=== PATIENT | female | born 1995 | race Caucasian/White ===

== ENCOUNTER 2017-10-20 12:06 | Outpatient (CLI) | payer MEDICAID ==
[2017-10-20 12:24] VITALS: BP 98/54
== END 2017-10-20 12:48 | disposition home or self-care (01) ==
LOC: TRG 12:06
PROVIDERS: ATTEND Obstetrics & Gynecology
DX: Z34.93 Encounter for supervision of normal pregnancy, unspecified, third trimester (principal); Z3A.36 36 weeks gestation of pregnancy
CPT/HCPCS: 59025

== ENCOUNTER 2017-11-18 09:50 | Inpatient (IN) | payer MEDICAID ==
[2017-11-18] MEDS ORDERED: PEPCID IV SCH ×2 (10:17→14:23)
[2017-11-18] MEDS ORDERED: REGLAN IV SCH (10:17)
[2017-11-18] MEDS ORDERED: ANCEF/STERILE WATER 2 GM/20 ML 2 GM/20 ML SYRINGE IV NR (11:00)
[2017-11-18] MEDS ORDERED: PITOCin/NS 20 UNIT/1000ML DRIP 20 UNITS/1,000 ML BAG IV SCH ×3 (11:00→16:00)
[2017-11-18] MEDS ORDERED: BICITRA PO SCH (11:00)
[2017-11-18] MEDS: LACTATED RINGERS 1,000 ML IV SCH ×2 (12:17→13:12)
[2017-11-18 12:18] LABS: Basophils % (Auto) 0.2 % (0.0-1.8); Eosinophils % (Auto) 0.4 % (0.0-4.3); Hemoglobin 12.9 gm/dl (10.1-14.3); Mean Corpuscular HGB Conc 33 % (30-34); Mean Corpuscular Hemoglobin 29 pg (28-32); Mean Corpuscular Volume 88 fl (79-97); Platelet Count 224 K/mm3 (140-440); Red Blood Count 4.45 M/mm3 (3.65-5.03); Red Cell Distribution Width 13.4 % (13.2-15.2); White Blood Count 8.6 K/mm3 (4.5-11.0)
--- NOTE | 2017-11-18 13:02 | Anesthesia Day of Surgery ---
Anesthesia Day of Surgery - Day of Surgery Patient Examined: Yes Patient H&P Reviewed: Yes Patient is NPO: Yes
--- NOTE | 2017-11-18 13:02 | Anesthesia Consultation ---
Anesthesia Consult and Med Hx - Airway Anesthetic Teeth Evaluation: Good (some loose/broken in back) - Pulmonary Exam CTA: Yes - Cardiac Exam Cardiac Exam: RRR - Pre-Operative Health Status ASA Pre-Surgery Classification: ASA2 Proposed Anesthetic Plan: Spinal (primary preganancy - baby breech) - Pulmonary Hx Smoking: No Hx Asthma: No COPD: No Hx Pneumonia: No - Cardiovascular System Hx Hypertension: No - Central Nervous System Hx Seizures: No Hx Psychiatric Problems: No - Endocrine Hx Renal Disease: No Hx End Stage Renal Disease: No Hx Hypothyroidism: No Hx Hyperthyroidism: No - Hematic Hx Anemia: No Hx Sickle Cell Disease: No - Other Systems Hx Alcohol Use: No
--- NOTE | 2017-11-18 14:19 | History and Physical Report ---
History of Present Illness Date of examination: 11/18/17 Date of admission: 11/18/17 09:50 Chief complaint: seen in clinic and dx with oligo and breech History of present illness: This is a 22 yo G [id number] at 40+6 weeks admitted from clinic after US shows oligo and breech. She is scheduled for primary . Her OB care consist of early care at [facility] at 8 weeks. She had chlamydia and treated in this and treated. She has gained >30 pounds and hx of placenta previa in which resolved at 28 weeks. Past History Past Medical History: no pertinent history Past Surgical History: D&C [employer] History: chlamydia Family/Genetic History: diabetes, hypertension Social history: no significant social history, single. denies: smoking, alcohol abuse, prescription drug abuse - Obstetrical History Expected Date of Delivery: 11/12/17 Actual Gestation: 40 Week(s) 6 Day(s) : 3 Para: 0 Hx # Term Pregnancies: 0 Number of Pregnancies: 0 Spontaneous Abortions: 2 Induced : 0 Number of Living Children: 0 Medications and Allergies Allergies Allergy/AdvReac Type Severity Reaction Status Date / Time No Known Allergies Allergy Unverified 04/05/14 14:10 Home Medications Medication Instructions Recorded Confirmed Last Taken Type Vit Calc,Iron,Folic 1 each PO DAILY 11/18/17 11/18/17 Unknown History [ Vitamins] Active Meds: Active Medications Citric Acid/Sodium Citrate (Bicitra) 30 ml PO ONCE GIL Stop: 11/18/17 23:00 Last Admin: 11/18/17 13:05 Dose: 30 ml Famotidine (Pepcid) 20 mg IV ONCE GIL Stop: 11/18/17 23:00 Last Admin: 11/18/17 13:08 Dose: 20 mg Cefazolin Sodium (Ancef/Sterile Water 2 Gm/20 Ml) 2 gm in 20 mls @ 80 mls/hr IV PREOP NR PRN Reason: Protocol Stop: 11/18/17 23:00 Lactated Ringer's (Lactated Ringers) 1,000 mls @ 2,250 mls/hr IV PREOP GIL Stop: 11/19/17 11:27 Last Admin: 11/18/17 13:12 Dose: 2,250 mls/hr Oxytocin/Sodium Chloride (Pitocin/Ns 20 Unit/1000ml Drip) 20 units in 1,000 mls @ 0 mls/hr IV TITR GIL PRN Reason: As Directed Metoclopramide HCl (Reglan) 10 mg IV ONCE GIL Stop: 11/18/17 23:00 Last Admin: 11/18/17 13:06 Dose: 10 mg Review of Systems All systems: negative - Vital Signs Vital signs: Vital Signs Temp Resp 98.4 F 18 11/18/17 10:00 11/18/17 10:00 Temp Pulse Resp BP Pulse Ox 98.4 F 80 18 133/74 100 11/18/17 10:00 11/18/17 13:15 11/18/17 10:00 11/18/17 13:13 11/18/17 13:15 - Physical Exam Breasts: Positive: normal Cardiovascular: Regular rate, Normal S1 Lungs: Positive: Clear to auscultation, Normal air movement Abdomen: Positive: normal appearance, soft, normal bowel sounds. Negative: distention, tenderness Genitourinary (Female): Positive: normal external genitalia, normal perenium Vulva: both: normal Vagina: Positive: normal moisture Uterus: Positive: enlarged Anus/Rectum: Positive: normal perianal skin, heme negative Extremities: Positive: normal Deep Tendon Reflex Grade: Normal +2 - Obstetrical FHR: category 1 Results Result Diagrams: 11/18/17 12:04 Abnormal lab results 11/18/17 Range/Units 12:04 [place] % (Auto) 7.7 H (0.0-7.3) % Seg Neutrophils % 70.2 H (40.0-70.0) % All other labs normal. Ultrasound: report reviewed Assessment and Plan A/P IUP 40+6 weeks Breech Oligo discussed r//b/a of procedure whcih includ but not limited to bleeding infection damage to plevic and non pelvic organs firks of blood clots, risk of and hysterectomy proceed with Primary csec
[2017-11-18] MEDS ORDERED: NEO SYNEPHRINE/NS Syringe(OR USE) IV ONE (14:22)
[2017-11-18] MEDS ORDERED: MORPHINE ONE (14:24)
[2017-11-18] MEDS ORDERED: WATER FOR IRRIG STERILE IR ONE (14:30)
[2017-11-18] MEDS ORDERED: NACL 0.9% IR ONE (14:30)
[2017-11-18] MEDS ORDERED: BICITRA PO ONE (15:00)
[2017-11-18] MEDS ORDERED: REGLAN IV ONE (15:00)
[2017-11-18] MEDS ORDERED: LACTATED RINGERS 1,000 ML IV SCH (15:00)
[2017-11-18] MEDS ORDERED: TYLENOL PR PRN (15:53)
[2017-11-18] MEDS ORDERED: NARCAN 0.4 MG/1 ML IV PRN ×2 (15:53)
[2017-11-18] MEDS ORDERED: SENOKOT PO PRN (15:53)
[2017-11-18] MEDS ORDERED: LANSINOH TP PRN (15:53)
[2017-11-18] MEDS ORDERED: MILK OF MAGNESIA PO PRN (15:53)
[2017-11-18] MEDS ORDERED: MORPHINE IV PRN ×2 (15:53)
[2017-11-18] MEDS ORDERED: ZOFRAN IV PRN (15:53)
[2017-11-18] MEDS ORDERED: MYLICON PO PRN (15:53)
[2017-11-18] MEDS ORDERED: PHENERGAN PR PRN (15:53)
[2017-11-18] MEDS ORDERED: ANUCORT-HC PR PRN (15:53)
[2017-11-18] MEDS ORDERED: NORCO 5/325 PO PRN (15:53)
[2017-11-18] MEDS ORDERED: TUCKS PAD TP PRN (15:53)
[2017-11-18] MEDS ORDERED: TORADOL IV PRN (15:53)
[2017-11-18] MEDS ORDERED: SODIUM CHLORIDE FLUSH SYRINGE 10 ML IV NR (16:00)
[2017-11-18] MEDS ORDERED: D5LR 1,000 ML IV SCH (16:00)
--- NOTE | 2017-11-18 16:04 | Operative Report ---
Operative Report Operative Report: DATE OF OPERATION: 11/18/2017 PREOPERATIVE DIAGNOSES: 1. Intrauterine gestation at 40+6 weeks. 2. US report stating oligohydramnios 4cm and breech 3. Obesity POSTOPERATIVE DIAGNOSES: 1.Intrauterine gestation at 40+6 weeks 2.Oligohydramnios 3. vertex OPERATION PERFORMED: Primary low transverse section. SURGEON: Lidia Stephen MD ANESTHESIA: Spinal . COMPLICATIONS: None. ESTIMATED BLOOD LOSS: 1000 mL. DRAINS: Bingham catheter to the bladder. SPECIMENS TO PATHOLOGY: Cord blood for routine testing. OPERATIVE FINDINGS: A viable male infant with Apgars of 8 and 9 and birthweight of 8 pounds 9 ounces was delivered from a cephalic presentation, The amniotic fluid was clear. The uterus, fallopian tubes and ovaries were normal. DESCRIPTION OF OPERATION: The patient was brought to the operating suite in stable condition with epidural anesthesia on board and an indwelling catheter in place in the bladder. The patient was placed supine on the operating room table and rolled to her left side with a wedge. The abdomen was prepped and draped in standard fashion for section. After testing with forceps to assure an adequate anesthetic level, the surgery was commenced. We had counseled the patient extensively regarding the risks of the surgery including but not limited to stroke, embolus, phlebitis, pain, infection, hemorrhage, as well as injury to the infant and the internal organs such as the bowel, bladder, blood vessels, nerves, kidneys, ureters and pelvic organs. The patient was aware of the postoperative morbidity issues and recovery timeframes. The patient was aware she can form adhesions, which can result in obstruction of loop of bowel or ureter or chronic pain. She was aware that should she have hemorrhage and require blood transfusion, there was a small chance for exposure to hepatitis or HIV disease. With the scalpel, a Pfannenstiel skin incision was made. Dissection was carried down sharply through the subcutaneous tissues and fascia in a transverse plane with the scalpel, electrocautery and curved Virk scissors. The fascia was sharply freed up superiorly and inferiorly from the underlying rectus muscles, which were bluntly and sharply divided. The peritoneum was entered carefully in a clear space with a curved hemostat. The peritoneal incision was then extended vertically with Metzenbaum scissors. A retractor and bladder blade were placed. A bladder flap was created by incising transversely through the peritoneum and vesicouterine fold and then bluntly dissecting the bladder distally. With the scalpel, a low transverse hysterotomy was commenced. The serosa and myometrium were scored with the scalpel. The uterine cavity was actually entered bluntly with a curved hemostat. The uterine incision was then extended laterally with the crabbing machine operator's fingers. An intrauterine hand was placed and the head of the was brought up out of the pelvis into the uterine incision. With fundal pressure, he was delivered without difficulty. The nasopharynx and oropharynx were suctioned. The cord was doubly clamped and transected. The was then handed off to the nursery personnel. Apgars were good at 8 and 9. A cord pH was obtained, which subsequently revealed a normal value. Further cord blood was collected for routine testing. Intravenous Pitocin and antibiotics were administered. The placenta was manually removed. The uterine cavity was then curetted with a dry sponge and freed of the remaining membranes. The edges of the uterine incision were grasped with Hodgson clamps. With the massage and the Pitocin, the uterus began to firm up normally. The uterine incision was then closed in 2 layers of 0 Vicryl sutures. The first suture was placed to the endometrium and myometrium. The second suture was placed through the endopelvic fascia and also reincorporated the bladder flap peritoneum. Peritoneal lavage was then performed. The pelvis and gutters were irrigated and suctioned and cleared of all blood and clots and amniotic fluid. The uterine incision was reinspected to assure hemostasis. The uterus, tubes and ovaries were inspected and were normal. Once we were satisfied with the hemostasis, attention was turned to closure of the abdominal incision. The peritoneum, muscles and fascia were closed in layers using 0-Vicryl sutures. The subcutaneous tissue was closed with 3-0 plain sutures. The skin was closed with a subcuticular suture of 4-0 Vicryl followed by benzoin, Steri-Strips and a Telfa dressing. The patient was moved to the recovery room in stable condition with the Bingham catheter draining clear urine. Instruments, sponge and needle counts were reported as correct. Estimated blood loss was 800 mL. There were no complications.
--- NOTE | 2017-11-18 17:18 | Post Anesthesia Evaluation ---
- Post Anesthesia Evaluation Patient Participated: Yes Airway Patent: Yes Stable Respiratory Function: Yes Temp > 96.8F: Yes Pain Manageable: Yes Adequeate Hydration: Yes Anesthesia Complications: No Block Receding Appropriately: Yes
[2017-11-19 05:44] LABS: Hemoglobin 10.2 gm/dl (10.1-14.3)
[2017-11-19] MEDS ORDERED: M-M-R II VACCINE SUB-Q ONE (06:00)
[2017-11-19] MEDS ORDERED: BOOSTRIX IM ONE (06:00)
[2017-11-19] MEDS: PERCOCET 5/325 PO PRN ×2 (07:30→14:05)
--- NOTE | 2017-11-19 08:45 | Progress Note ---
Assessment and Plan A: POD#1 s/p primary section at term P: Routine postoperative advances. Subjective - Subjective Date of service: 11/19/17 Principal diagnosis: s/p primary at term Interval history: No overnight events Patient reports: appetite normal, voiding normally, pain well controlled, ambulating normally, no flatus, no bowel movement [place]: doing well Objective - Vital Signs Latest vital signs: Vital Signs Temp Pulse Resp BP BP Pulse Ox 11/19/17 03:30 98.5 F 82 20 105/62 98 11/19/17 00:25 98.2 F 83 20 112/58 97 11/18/17 20:20 98.3 F 87 20 115/54 96 11/18/17 17:37 97.3 F L 56 L 20 107/65 97 11/18/17 17:05 97.5 F L 57 L 14 110/55 100 11/18/17 17:00 67 17 97/61 96 11/18/17 16:55 73 12 103/52 99 11/18/17 16:50 59 L 15 105/45 98 11/18/17 16:45 63 17 96/53 98 11/18/17 16:40 62 14 96/48 99 11/18/17 16:35 62 12 98/47 98 11/18/17 16:30 62 12 104/46 97 11/18/17 16:25 61 9 L 100/44 95 11/18/17 16:20 60 14 101/47 99 11/18/17 16:14 59 L 13 98 11/18/17 16:08 55 L 10 L 98 11/18/17 16:02 70 8 L 95 11/18/17 16:00 97.1 F L 62 8 L 88/38 98 11/18/17 13:15 80 100 11/18/17 13:13 83 133/74 11/18/17 13:10 76 100 11/18/17 13:05 81 99 11/18/17 13:00 91 H 100 11/18/17 12:55 86 99 11/18/17 12:50 84 98 11/18/17 12:45 85 99 11/18/17 12:40 87 100 11/18/17 12:35 78 99 11/18/17 12:30 86 99 11/18/17 12:25 85 100 11/18/17 12:20 81 99 11/18/17 12:15 88 100 11/18/17 11:34 95 H 113/61 97 11/18/17 11:29 71 99 11/18/17 11:24 87 99 11/18/17 11:19 94 H 99 11/18/17 11:14 71 98 11/18/17 11:09 80 97 11/18/17 11:03 73 118/77 98 11/18/17 10:58 93 H 97 11/18/17 10:53 83 98 11/18/17 10:48 106 H 99 11/18/17 10:43 88 98 11/18/17 10:38 89 98 11/18/17 10:33 104 H 104/69 99 11/18/17 10:00 98.4 F 18 Intake and Output 11/18/17 11/19/17 11/19/17 22:59 06:59 14:59 Intake Total 600 Output Total 170 500 Balance 430 -500 Intake: IV 600 Output: Urine 170 500 Indwelling Catheter 500 Other: Total, Output Amount 500 Estimated Blood Loss 1,000 - Exam Breasts: Present: deferred Cardiovascular: Present: Regular rate Lungs: Present: Clear to auscultation Abdomen: Present: soft (obese ), abnormal bowel sounds Uterus: Present: fundal height at umbilicus Extremities: Present: normal Incision: Present: dressed - Labs Labs: Abnormal lab results 11/18/17 Range/Units 12:04 [place] % (Auto) 7.7 H (0.0-7.3) % Seg Neutrophils % 70.2 H (40.0-70.0) %
[2017-11-19] MEDS: FEOSOL PO SCH (17:54)
[2017-11-19] MEDS: PRENATAL VITAMIN PO SCH (17:54)
[2017-11-20] MEDS: MOTRIN PO PRN ×2 (06:08→14:00)
[2017-11-20] MEDS: FEOSOL PO SCH (12:55)
[2017-11-20] MEDS: PRENATAL VITAMIN PO SCH (12:55)
[2017-11-20] MEDS: PERCOCET 5/325 PO PRN (16:00)
--- NOTE | 2017-11-20 17:44 | Progress Note ---
Assessment and Plan A: POD#2 s/p primary section at term P: Routine postoperative advances. Anticipate discharge tomorrow. Subjective - Subjective Date of service: 11/20/17 Principal diagnosis: s/p primary at term Interval history: No overnight events Patient reports: appetite normal, voiding normally, pain well controlled, flatus , ambulating normally, no bowel movement, no nauseated : doing well Objective - Vital Signs Latest vital signs: Vital Signs Temp Pulse Resp BP BP Pulse Ox 11/20/17 11:49 97.4 F L 18 125/75 11/20/17 10:00 18 115/60 11/20/17 07:45 98.0 F 85 18 115/60 95 11/20/17 06:08 20 11/20/17 01:07 98.5 F 89 20 125/68 96 Intake and Output 11/20/17 11/20/17 11/20/17 06:59 14:59 22:59 Intake Total 360 Balance 360 Intake: Intake, Free Water 360 Other: # Voids Void 2 - Exam Breasts: Present: deferred Cardiovascular: Present: Regular rate Lungs: Present: Clear to auscultation Abdomen: Present: soft Uterus: Present: fundal height below umbilicus Extremities: Present: normal Incision: Present: dressed
[2017-11-20] MEDS: MILK OF MAGNESIA PO SCH ×2 (18:07→23:29)
[2017-11-21] MEDS: MOTRIN PO PRN (02:21)
[2017-11-21] MEDS: PERCOCET 5/325 PO PRN (08:28)
[2017-11-21 09:18] VITALS: BP 117/64
[2017-11-21] MEDS: FEOSOL PO SCH (10:21)
[2017-11-21] MEDS: PRENATAL VITAMIN PO SCH (10:21)
--- NOTE | 2017-11-21 10:37 | Progress Note ---
Assessment and Plan A: POD#3 s/p primary section at term P: Routine postoperative advances. Discharge today. Subjective - Subjective Date of service: 11/21/17 Principal diagnosis: s/p primary at term Interval history: No overnight events Patient reports: appetite normal, voiding normally, pain well controlled, flatus , bowel movement, ambulating normally, no nauseated [place]: doing well Objective - Vital Signs Latest vital signs: Vital Signs Temp Pulse Resp BP BP Pulse Ox 11/21/17 08:44 98.5 F 106 H 18 117/64 98 11/21/17 00:00 98.9 F 18 138/53 11/20/17 17:15 98.2 F 18 122/65 11/20/17 16:53 98.2 F 80 18 122/65 98 11/20/17 11:49 97.4 F L 18 125/75 Intake and Output 11/20/17 11/21/17 11/21/17 22:59 06:59 14:59 Intake Total 360 240 Balance 360 240 Intake: Oral 360 240 Other: Total, Intake Amount 360 240 # Voids Void 2 1 - Exam Breasts: Present: deferred Cardiovascular: Present: Regular rate Lungs: Present: Clear to auscultation Abdomen: Present: soft (OBESE ), normal bowel sounds Uterus: Present: fundal height at umbilicus Extremities: Present: normal Incision: Present: intact
--- NOTE | 2017-11-21 10:38 | Discharge Summary ---
Providers - Providers Date of Admission: 11/18/17 09:50 Date of discharge: 11/21/17 Attending physician: RANDY BOYD MD Primary care physician: RANDY BOYD MD Hospitalization Reason for admission: section Delivery: Procedure: section, primary low transverse Procedure details: Please see operative note. Incision: intact Other procedures: none complications: none Discharge diagnosis: IUP at term delivered baby: male Hospital course: Pt was admitted for section which she tolerated well. Her postoperative course was uncomplicated and she met discharge criteria on POD#3. She will follow up in two weeks for an incision check. Condition at discharge: Stable Disposition: - TO HOME OR SELFCARE - Discharge Diagnoses (1) Obesity Status: Acute Qualifiers: Obesity type: unspecified obesity type Serious obesity comorbidity presence : unspecified whether serious comorbidity present Body mass index: BMI 34.0- 34.9 (2) S/P section Status: Acute (3) Term of male Status: Acute Plan - Discharge Medications Prescriptions: Ibuprofen [Motrin] 800 mg PO Q8HR PRN #30 tablet PRN Reason: Pain oxyCODONE /ACETAMINOPHEN [Percocet 5/325] 1 tab PO Q6HR PRN #40 tablet PRN Reason: Pain - Provider Discharge Summary Activity: routine, no sex for 6 weeks, no heavy lifting 4 weeks, no strenuous exercise Diet: routine Instructions: routine Additional instructions: [] Smoking cessation referral if applicable(refer to patient education folder for contact #) [] Refer to [facility]'s [facility] Booklet Call your doctor immediately for: * Fever > 100.5 * Heavy vaginal bleeding ( >1 pad per hour) * Severe persistent headache * Shortness of breath * Reddened, hot, painful area to leg or breast * Drainage or odor from incision. * Keep incision clean and dry at all times and follow doctor's instructions regarding bathing/showering PLEASE SCHEDULE YOUR SON'S CIRCUMCISION BEFORE HE IS ONE MONTH OLD. - Follow up plan Follow up: CARYN RAMOS MD [Staff Physician] - 12/02/17 (please schedule incision check)
== END 2017-11-21 15:25 | disposition home or self-care (01) | DRG 765 ==
LOC: APU 09:50 → OB 17:45
PROVIDERS: ADMIT Obstetrics & Gynecology; ATTEND Obstetrics & Gynecology
PROC: 10D00Z1 Extraction of Products of Conception, Low, Open Approach (ICD-10-PCS; principal; 2017-11-18)
PROC: 3E0234Z Introduction of Serum, Toxoid and Vaccine into Muscle, Percutaneous Approach (ICD-10-PCS; 2017-11-19)
DX: O99.214 Obesity complicating childbirth (principal); O41.03X0 Oligohydramnios, third trimester, not applicable or unspecified; O32.1XX0 Maternal care for breech presentation, not applicable or unspecified; E66.9 Obesity, unspecified; Z3A.40 40 weeks gestation of pregnancy; Z37.0 Single live birth; Z23 Encounter for immunization; Z68.34 Body mass index [BMI] 34.0-34.9, adult; Z82.49 Family history of ischemic heart disease and other diseases of the circulatory system; Z83.3 Family history of diabetes mellitus
CPT/HCPCS: 36415; 85014; 85018; 85025; 86592; 86850; 86900; 86901; 99211; A6250; G0463; J0690; J1885; J2270; J2370; J2405; J2590; J2765; J7120; J7121